=== PATIENT | female | born 1955 | race Caucasian/White ===

== ENCOUNTER 2017-11-25 14:53 | Observation (INO) | payer OTHER ==
[~2017-11-25] VITALS: Ht 161.9 cm; Wt 74.4 kg
[2018-01-13] VITALS (11 sets, daily range): BP systolic 80–125; BP diastolic 41–59; PULSE 55–81; TEMP 96.8–98.1
[2018-01-13] MEDS ORDERED: CELEXA40 MG PO (06:15)
[2018-01-13] MEDS ORDERED: FOSAMAX 35MG35 MG PO (06:15)
[2018-01-13] MEDS ORDERED: FLONASEALLERGY NS (06:15)
[2018-01-13] MEDS ORDERED: MELAT3MGTAB PO (06:16)
[2018-01-13] MEDS ORDERED: MACRODANTIN100 PO (06:16)
[2018-01-13] MEDS ORDERED: LIDOCAINE HCL100 M1 MM (06:17)
[2018-01-13] MEDS ORDERED: TRIAMCINOLONE A15 G1 TP (06:17)
[2018-01-13] MEDS ORDERED: ZYRTEC 10MG10 MG PO (13:01)
[2018-01-14 05:14] VITALS: BP 82/43; PULSE 60; TEMP 97.9
[2018-01-14 07:07] LABS: MEAN CELL VOLUME 94 fl (80.0-100.0); MEAN CORPUSCULAR HEMOGLOBIN 31 pg (27.0-31.0); MEAN CORPUSCULAR HGB CONC 33 g/dl (33.0-37.0); MEAN PLATELET VOLUME 10.3 fl (7.4-10.4); PLATELET COUNT 168 K/mm3 (130-400); RED BLOOD COUNT 3.52 M/mm3 (4.10-5.30); REDCELL DISTRIBUTION WIDTH-CV 12.9 % (11.5-14.5)
[2018-01-14 07:12] LABS: HEMATOCRIT 33.1 % (37.0-47.0)
[2018-01-14 07:16] LABS: CALCIUM 7.5 mg/dL (8.4-10.2); CREATININE, serum 0.74 mg/dL (0.52-1.25); POTASSIUM 4.6 mmol/L (3.4-5.0)
[2018-01-14 07:50] VITALS: BP 97/53; PULSE 60; TEMP 97.9
[2018-01-14 13:01] VITALS: BP 92/48; PULSE 54; TEMP 98
[2018-01-14 16:09] VITALS: BP 84/72; PULSE 56; TEMP 98.1
[2018-01-14 19:36] VITALS: BP 98/47; PULSE 68; TEMP 98.8
[2018-01-15 00:15] VITALS: BP 113/92; PULSE 59; TEMP 98.2
[2018-01-15 03:33] VITALS: BP 117/83; BP 92/50; PULSE 55; PULSE 90; TEMP 98.3
[2018-01-15 06:16] LABS: HEMOGLOBIN 11.5 g/dl (12.5-16.0); MEAN CELL VOLUME 94 fl (80.0-100.0); MEAN CORPUSCULAR HEMOGLOBIN 31 pg (27.0-31.0); MEAN CORPUSCULAR HGB CONC 33 g/dl (33.0-37.0); MEAN PLATELET VOLUME 10.4 fl (7.4-10.4); PLATELET COUNT 167 K/mm3 (130-400); RED BLOOD COUNT 3.72 M/mm3 (4.10-5.30)
[2018-01-15 06:18] LABS: HEMATOCRIT 34.9 % (37.0-47.0)
[2018-01-15 06:33] LABS: CALCIUM 7.9 mg/dL (8.4-10.2); CREATININE, serum 0.92 mg/dL (0.52-1.25); POTASSIUM 4.5 mmol/L (3.4-5.0)
[2018-01-15 08:22] VITALS: BP 117/60; PULSE 58; TEMP 98
== END 2018-01-15 11:50 | disposition home or self-care (01) ==
LOC: SURG 01-13 05:46 → INPTSU 01-13 05:46 → SURG 01-13 07:03 → INPTSU 01-13 12:55 → SURG 01-13 12:55
PROVIDERS: Urology
DX: N99.3 Prolapse of vaginal vault after hysterectomy (principal); N39.46 Mixed incontinence; S37.23XA Laceration of bladder, initial encounter; N99.71 Accidental puncture and laceration of a genitourinary system organ or structure during a genitourinary system procedure; Y92.234 Operating room of hospital as the place of occurrence of the external cause; I95.81 Postprocedural hypotension
CPT/HCPCS: A4314; A9284; C1769; C1781; G0378; G0379; J0690; J1100; J1885; J1956; J2405; J2704; J2710; J2765; J3010; J7030; J7120

== ENCOUNTER → 2018-01-27 | Outpatient (CLI) | payer OTHER ==
[~2018-01-27] MED LIST: CELEXA40 MG PO; FLONASEALLERGY NS; FOSAMAX 35MG35 MG PO; LIDOCAINE HCL100 M1 MM; MACRODANTIN100 PO; MELAT3MGTAB PO; TRIAMCINOLONE A15 G1 TP; ZYRTEC 10MG10 MG PO
== END ==
LOC: COL.RAD 12:34
DX: N81.11 Cystocele, midline (principal); N99.3 Prolapse of vaginal vault after hysterectomy; Z90.710 Acquired absence of both cervix and uterus